=== PATIENT | female | born 1995 | race Two or more races ===

== ENCOUNTER 2023-05-15 20:14 | Emergency (ER) | payer BC ==
[~2023-05-15] VITALS: Ht 167.6 cm; Wt 78.1 kg
[2023-05-15 22:55] LABS: Urine Bacteria FEW /hpf (None Seen); Urine Blood 1+ /uL (Negative); Urine Clarity Clear (Clear); Urine Color Yellow (Yellow); Urine Mucus FEW (None Seen); Urine Protein, UAD 1+ (Negative); Urine Specific Gravity 1.035 (1.001-1.035); Urine Urobilinogen Normal (Negative); Urine WBC 2 /hpf (0 - 5); Urine pH 6.5 (5.0-8.0)
[2023-05-15 23:12] LABS: Basophils # (auto) 0 10 ^3/uL (0-0.2); Basophils % (auto) 0.4 % (0.0-2.0); Eosinophils # (auto) 0 10 ^3/uL (0-0.8); Eosinophils % (auto) 0.4 % (0.0-7.0); Hematocrit 40.5 % (36.0-46.0); Hemoglobin 13.5 g/dL (12.2-16.2); Lymphocytes # (auto) 0.8 10 ^3/uL (0.4-5.4); Mean Corpuscular Hemoglobin 29.9 pg (28.0-32.0); Mean Corpuscular Hgb Conc. 33.4 g/dL (32.0-36.0); Mean Corpuscular Volume 89.7 fL (80.0-100.0); Monocytes # (auto) 0.5 10 ^3/uL (0-1.3); Monocytes % (auto) 5.5 % (0.0-12.0); Neutrophils # (auto) 7.9 10 ^3/uL (1.6-8.6); Neutrophils % (auto) 84.7 % (37.0-80.0); Red Blood Cells 4.51 10^6/uL (4.0-5.20); White Blood Cell 9.3 10^3/uL (4.4-10.8)
[2023-05-15 23:21] LABS: Chloride 102 mmol/L (98-107); Potassium 4.2 mmol/L (3.5-5.1); Sodium 137 mmol/L (136-145)
[2023-05-15 23:22] LABS: Anion Gap 8 (5-15); Carbon Dioxide 27 mmol/L (20-30)
[2023-05-15 23:23] LABS: Calcium 9.2 mg/dL (8.7-10.4)
[2023-05-15 23:28] LABS: BUN/Creatinine Ratio 15.1 (10.0-20.0); Blood Urea Nitrogen 13 mg/dL (9-23); Glucose 105 mg/dL (74-106); Lipase 39 U/L (12-53)
[2023-05-15] MEDS ORDERED: ZOFR4T PO (23:50)
[2023-05-15] MEDS ORDERED: NITR-87 PO (23:50)
[2023-05-15 23:59] VITALS: BP 103/59; PULSE 105; RESP 16; TEMP 98.7; O2SAT 98
[2023-05-16] MEDS: ONDANSETRON ODT 4 MG TAB PO ONE (00:03)
[2023-05-16] MEDS: MAALOX PLUS or MAALOX 30 ML PO ONE (00:03)
== END 2023-05-15 23:59 | disposition home or self-care (01) ==
LOC: ER 20:14
DX: N39.0 Urinary tract infection, site not specified (principal)
CPT/HCPCS: 36415; 80048; 81001; 81025; 83690; 85025